=== PATIENT | female | born 1950 | race Hispanic/Latino ===

== ENCOUNTER 2020-05-11 21:32 | Emergency (ER) | payer OTHER ==
[2020-05-11] MEDS ORDERED: cefTRIAXone SODIUM 1 GM in SODIUM CHL 0.9% 50ML MIN-BAG+ 50 ML IVPB ONE (22:12)
[2020-05-11] MEDS ORDERED: DEXAMETHASONE INJ 10 MG/ML VIAL IV ONE (22:13)
[2020-05-11] MEDS ORDERED: AZITHROMYCIN IV 500 MG in SODIUM CHLORIDE 0.9% 250ML 250 ML IVPB ONE (22:13)
[2020-05-11] MEDS ORDERED: ENOXAPARIN SODIUM 40 MG/0.4 ML SYG SUBCU ONE (22:14)
--- NOTE | 2020-05-11 22:30 | ED.PDOC ---
History of Present Illness - General Chief Complaint: Respiratory Problem Stated Complaint: transferred from outside hospitals with complains of Hypoxia from Covid pneumonia Time Seen by Provider: 05/11/20 21:37 Source: patient, old records, other - Physician outside facility documentation from outside facility Exam Limitations: no limitations Additional Information: The patient is a 70-year-old female that was transferred from an outside facility for Acute hypoxic respiratory failure secondary to Covid pneumonia. The patient states that she has had symptoms for the last week. She states that home health came to check on her wound and found out sheHypoxic and told her to go to the emergency department. I presentation to the emergency department her oxygen saturations were in the 80s. She states that she has chronic COPD and asthma but does not require supplemental oxygen normally. - History of Present Illness Timing/Duration: week - 1 Severity: moderate Possible Cause: no prior episodes Improving Factors: nothing Worsening Factors: nothing Associated Symptoms: cough, nasal congestion, shortness of breath Respiratory Risk Factors: other - Covid positive Allergies/Adverse Reactions: Allergies NO KNOWN ALLERGY Allergy (Verified 05/11/20 22:13) Review of Systems - Review of Systems Constitutional: Denies: chills EENTM: States: nose congestion. Denies: eye pain, tearing, ear pain, ear discharge Respiratory: States: cough, short of breath. Denies: orthopnea, stridor, wheezing Cardiology: Denies: chest pain, palpitations, syncope Gastrointestinal/Abdominal: Denies: abdominal pain, diarrhea, nausea Musculoskeletal: Denies: back pain, gout, muscle pain Skin: Denies: change in color, dryness, lesions Neurological: Denies: anxiety, depressed, numbness, paresthesia Endocrine: Denies: flushing, intolerance to cold Hematologic/Lymphatic: Denies: anemia, easy bleeding, easy bruising All other Systems: Reviewed and Negative Past Medical History (General) - Patient Medical History Hx Asthma: Yes Hx of COPD: Yes Hx Gastroesophageal Reflux: Yes Family Medical History - Family History Mother Family History: Unknown Physical Exam - Physical Exam General Appearance: Alert, Comfortable Eye Exam: bilateral normal ENT Exam: normal ENT inspection, hearing grossly normal, TMs normal, pharynx normal Neck: non-tender, full range of motion, supple, normal inspection Respiratory: chest non-tender, lungs clear, normal breath sounds, no respiratory distress, no accessory muscle use, other - Oxygen saturations dropped to 82In room air oxygen saturations improved to 92-94 on 2 L nasal cannula. 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 Review of lab work from outside facility shows the patient has bilateral patchy pneumonia. outside facility stated cardiac workup was unremarkable . She also has RUPESH with a creatinine of 2.2.No medications were given at outside facility . started medications emergency department tD-dimer and cardiac work-up. Cardiac enzymes elevated with a troponin of 1.7, D-dimer over 4000.Started patient on full dose Lovenox concern for PE embolism. CT chest angio cannot be performed because of the patient's kidney function.Transferring the patient to an outside facility for acute hypoxic respiratory failure, NSTEMI, RUPESH, 05/11/20 23:07 05/12/20 00:23 - EKG/XRAY/CT EKG: Sinus - Normal sinus rhythm with PACs , NoST segment elevation. [place] QRS and QT interval within normal limits CT: CT report from outside facilities wO contrast shows bilateral patchy Infilt Departure - Departure Clinical Impression: Respiratory failure with hypoxia, Pneumonia due to COVID-19 virus, RUPESH (acute kidney injury), Diabetes, GERD (gastroesophageal reflux disease), NSTEMI (non-ST elevated myocardial infarction) Disposition: Transfer to Hospital Condition: Poor Departure Forms: ED Discharge - Pt. Copy, Patient Portal Self Enrollment Referrals: JOSSELINE DONOVAN [Primary Care Provider] - 1-2 Weeks Comments: Accpeted By Dr Alanis Critical Care Note - Critical Care Note Total Time (mins): 45
[2020-05-11] MEDS ORDERED: SODIUM CHLORIDE 0.9% 500ML 500 ML IVS ONE (22:32)
[2020-05-11] MEDS ORDERED: SODIUM CHLORIDE 0.9% (FLUSH) 10 ML SYG ONE (22:32)
[2020-05-11] MEDS ORDERED: ENOXAPARIN SODIUM 100 MG/ML SYG SUBCU ONE (23:00)
[2020-05-11] MEDS ORDERED: SODIUM CHLORIDE 0.9% 250ML 250 ML ONE (23:03)
[2020-05-11] MEDS ORDERED: REMDESIVIR 200 MG ONE (23:03)
[2020-05-12 01:27] VITALS: BP 109/96; TEMP 98.2; O2SAT 99
[2020-05-12] MEDS ORDERED: REMDESIVIR 200 MG in SODIUM CHLORIDE 0.9% 250ML 250 ML IVPB SCH (09:00)
== END 2020-05-12 01:10 | disposition short-term general hospital (02) ==
LOC: ER 21:32
DX: U07.1 COVID-19 (principal); J12.89 Other viral pneumonia; J96.01 Acute respiratory failure with hypoxia; N17.9 Acute kidney failure, unspecified; I21.4 Non-ST elevation (NSTEMI) myocardial infarction; E11.9 Type 2 diabetes mellitus without complications; K21.9 Gastro-esophageal reflux disease without esophagitis; I49.1 Atrial premature depolarization; J44.9 Chronic obstructive pulmonary disease, unspecified
CPT/HCPCS: 36415; 82550; 83615; 83735; 84484; 85025; 85379; 85730; 86140; 93005; A4216; J0456; J0696; J1100; J1650; J7040; J7050